=== PATIENT | male | born 1980 | race Two or more races ===

== ENCOUNTER → 2025-05-06 | Outpatient (CLI) | payer BC, MEDICAID, SELFPAY ==
[2025-05-06 17:10] LABS: Prostate Specific Antigen 4.43 ng/mL (0-4.00)
== END | disposition home or self-care (01) ==
LOC: COPL 15:42
PROVIDERS: PCP Nurse Practitioner Primary Care; Referring Provider Surgery; Visit Provider Surgery
DX: N40.1 Benign prostatic hyperplasia with lower urinary tract symptoms (principal)
CPT/HCPCS: 36415; 84153